=== PATIENT | female | born 1955 | race Caucasian/White ===

== ENCOUNTER 2025-11-13 06:41 | Day surgery (SDC) | payer MEDICARE ==
[~2025-11-13] VITALS: Ht 157.5 cm; Wt 68.5 kg
[~2025-11-13 06:41] MED LIST: LEXA1TAB2 PO
[2025-11-13] MEDS ORDERED: LR 1,000 ML IV SCH (06:50)
[2025-11-13] MEDS ORDERED: MIDAZOLAM INJ 2 MG/2 ML VIAL As Ordered ONE (07:14)
[2025-11-13] MEDS ORDERED: LIDOCAINE 2% 100 MG/5 ML SDV (FOR ANES.) As Ordered ONE (07:14)
[2025-11-13] MEDS ORDERED: dexmedeTOMIDine (4 MCG/ML) 200 MCG/50 ML BTL As Ordered ONE (07:15)
[2025-11-13] MEDS ORDERED: dexAMETHasone 4 MG/ML 1 ML VIAL As Ordered ONE (07:15)
[2025-11-13] MEDS ORDERED: ACETAMINOPHEN 1000MG/100ML IV BAG As Ordered ONE (07:15)
[2025-11-13] MEDS ORDERED: ONDANSETRON 4MG/2ML VIAL As Ordered ONE (07:15)
[2025-11-13] MEDS: LIDOCAINE 2% W/EPINEPHrine 20 ML VIAL **PRES FREE As Ordered ONE (08:06)
[2025-11-13 09:10] VITALS: BP 123/69; TEMP 97.7; O2SAT 99
== END 2025-11-13 09:41 | disposition home or self-care (01) ==
LOC: M SDC 06:41
PROVIDERS: ATTEND Plastic Surgery Surgery of the Hand
DX: C44.319 Basal cell carcinoma of skin of other parts of face (principal); F41.9 Anxiety disorder, unspecified; F32.A Depression, unspecified; Z79.899 Other long term (current) drug therapy; Z90.49 Acquired absence of other specified parts of digestive tract
CPT/HCPCS: 11641; 12051; 88305; 88331; J0131; J0688; J1100; J2250; J2405; J3010